=== PATIENT | male | born 2000 | race American Indian/Alaskan Native ===

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

== ENCOUNTER 2020-07-28 19:30 | Emergency (ER) | payer BC, OTHER ==
[2020-07-28 19:37] VITALS: BP 108/66; PULSE 78
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
[2020-07-28 20:30] LABS: ANION GAP 16.7 mEq/L (7-13); CHLORIDE,CL 104 mmol/L (98-107); SODIUM,NA 141 mmol/L (136-145)
[2020-07-28 20:32] LABS: ACETAMINOPHEN 0 ug/mL (10-30 (Therapeutic))
[2020-07-28] MEDS ORDERED: Bacitracin Oint 1 GM U/D Packet TOP ONE (20:36)
[2020-07-28] MEDS ORDERED: Bacitracin Oint 1 GM U/D Packet ONE (20:48)
== END 2020-07-28 21:32 | disposition home or self-care (01) ==
LOC: DL.ED 19:30
DX: S69.92XA Unspecified injury of left wrist, hand and finger(s), initial encounter (principal); X78.8XXA Intentional self-harm by other sharp object, initial encounter
CPT/HCPCS: 36415; 80053; 80143; 80179; 80305-QW; 80307; 81003; 85025; 99284